=== PATIENT | male | born 1965 | race African-American/Black ===

== ENCOUNTER 2017-08-11 03:07 | Emergency (ER) | payer MEDICAID, OTHER ==
[~2017-08-11] VITALS: Ht 185.4 cm; Wt 87.0 kg
[2017-08-11 04:12] LABS: CLARITY URINE CLEAR (CLEAR); COLOR URINE YELLOW (YELLOW); KETONES URINE NEGATIVE (NEGATIVE); LEUKOCYTE ESTERASE URINE NEGATIVE (NEGATIVE); NITRITE URINE NEGATIVE (NEGATIVE); OCCULT BLOOD URINE 2+ (NEGATIVE); PH URINE 5.5 (4.5-8.0); PROTEIN URINE NEGATIVE (NEGATIVE); SPECIFIC GRAVITY URINE 1.025 (1.005-1.030); UROBILINOGEN URINE 0.2 E.U./dL (0.2-1.0)
[2017-08-11 05:01] LABS: CHLORIDE 110 mEq/L (98-107)
[2017-08-11 06:43] VITALS: BP 128/76
== END 2017-08-11 06:46 | disposition home or self-care (01) ==
LOC: ER 03:07
DX: N40.1 Benign prostatic hyperplasia with lower urinary tract symptoms (principal); F17.200 Nicotine dependence, unspecified, uncomplicated
CPT/HCPCS: 36415; 51702; 80048; 81003; 99284; A4315